=== PATIENT | female | born 1995 ===

== ENCOUNTER 2017-06-25 18:48 | Inpatient (IN) | payer BC, OTHER ==
[~2017-06-25] VITALS: Ht 157.5 cm; Wt 59.0 kg
[2017-06-25] MEDS ORDERED: ACETAMINOPHEN 325 MG TABLET PO PRN (20:30)
[2017-06-25] MEDS ORDERED: CLONIDINE HCL 0.1 MG TABLET PO PRN (20:30)
[2017-06-25] MEDS ORDERED: ONDANSETRON ODT 4 MG TAB.RAPDIS SL PRN (20:30)
[2017-06-25] MEDS ORDERED: MAG HYDROX/AL HYDROX/SIMETH 30 ML LIQUID UDC PO PRN (20:30)
[2017-06-25] MEDS ORDERED: MIRALAX 17 GM POWD.PACK PO PRN (20:30)
[2017-06-25] MEDS ORDERED: LORAZEPAM 2 MG/1 ML VIAL IM PRN (20:30)
[2017-06-25] MEDS ORDERED: ONDANSETRON 4 MG/2 ML VIAL IM PRN (20:30)
[2017-06-25] MEDS ORDERED: MAGNESIUM HYDROXIDE 30 ML LIQUID UDC PO PRN (20:30)
[2017-06-25] MEDS ORDERED: LOPERAMIDE HCL 2 MG CAPSULE PO PRN ×2 (20:30)
[2017-06-25] MEDS ORDERED: DICYCLOMINE HCL 20 MG TABLET PO PRN (20:30)
[2017-06-25] MEDS ORDERED: DIAZEPAM 5 MG TABLET PO PRN (20:30)
[2017-06-25] MEDS ORDERED: DIAZEPAM 10 MG TABLET PO PRN ×2 (20:30)
[2017-06-25 21:00] VITALS: BP 108/82
[2017-06-25] MEDS: GABAPENTIN 300 MG CAPSULE PO SCH (21:00)
--- NOTE | 2017-06-25 21:05 | NUR ---
INTAKE NOTE: Patient's first assessment done in intake office. Patient is a 21 year old female. Patient reports NKA. Patient denies History of Seizures. Patient is alert and oriented x4. VS: T: 97.6, BP: 108/82, HR 96, RR 18, RA O2SAT: 96%. Pain: "0/10". Patient noted disheveled, unkempt, uncombed. Patient appears sad, worry with poor eye contact. Patient noted high intoxicated. Patient reported usin."Xanax PO 15-20 mg every day during last three weeks. Last used on 06/25/2017 at 1735". 2."Whiskey PO 240 ml very day during last three weeks. Last used on 06/25/2017 at 1735". 3."Methamphetamine 1-2 grams via IV every day during last three weeks. Last used on 06/25/2017 at 1500". 4."Methylenedioxymethamphetamine (MDMA)PO every day during last three weeks. Patient does not remember dosage. "Last used on 06/25/2017 at 1500". 5."Nitrous oxide inhalation every day during last three weeks. Patient does not remember dosage. "Last used on 06/25/2017 at 1500". Explained rules and regulations of the unit. Will further assess patient on the unit.
--- NOTE | 2017-06-25 21:10 | NUR ---
ADMISSION NOTE: Patient is a 21 year old female admitted to [facility] on 06/25/2017 at 2110 for Benzodiazepine/Xanax, ETOH/ Whiskey , Methamphetamine, MDMA, and Nitrous oxide withdrawal. Patient is ambulatory with unsteady gate. She is intoxicated. No S/S withdrawal at this time. Height: 62 inches; 130 lb by standing scale VS: T: 97.6, BP: 108/82, HR 96, RR 18, RA O2SAT: 96%. Pain: "0/10". Patient noted disheveled, unkempt, uncombed. Patient appears sad, worry with poor eye contact. Patient is alert and oriented x4. Patient reports NKA, is on Regular Diet, Full Code, is on Fall and Seizures Precautions. Patient denies history of withdrawal-induced seizures. Past Medical History: Anxiety, Depression. Patient reports: "I don't have Primary Care Physician". Patient unable provided UDS test at this time. Blood Labs drawn. Respirations even and unlabored. Lung Sounds are clear throughout. Patient denies SOB, cough, and chest pain. Bowel sounds active in all four quadrants. Skin is warm and dry to touch. Patient has dry scabs on lips and chin. Patient has BUE and BLE track brantley from substance using. Patient has old scar on left check, and scar on left upper back from "naproxen implant placed four months ago". Patient denies SI/HI. Substance Use History: 1."Xanax PO 15-20 mg every day during last three weeks. Last used on 06/25/2017 at 1735". 2."Whiskey PO 240 ml very day during last three weeks. Last used on 06/25/2017 at 1735". 3."Methamphetamine 1-2 grams via IV every day during last three weeks. Last used on 06/25/2017 at 1500". 4." MDMA PO every day during last three weeks. Patient does not remember dosage. "Last used on 06/25/2017 at 1500". 5."Nitrous oxide inhalation every day during last three weeks. Patient does not remember dosage. "Last used on 06/25/2017 at 1500". 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 I am coming for detox Tx today because I don't want to live like this anymore". Patient would like to continue to residential treatment after detox, and is interested in getting involved in a 12 step program that can sustain her. Patient reports smoking history: "20 cigarettes or 1 pack every day since 2010". Education for smoking cessation provided. Patient did not brought her home medications. Doctor Marcus Naidu MD assessed patient. Orders placed. Educated patient about plan of care including detox, group activities therapy, individual therapy, and discharge planning. Encouraged patient to verbalize feelings. All needs met. Call light within reach. Bed locked and in lowest position. Padded side rails up x2. Will continue to monitor closely. Addendum: 06/26/17 at 0305 by TEODORO LEWIS RN Correction: Patient brought medications upon admission. Medications reconciled.
[2017-06-25 21:28] LABS: BASOPHILS # (AUTO) 0.1 K/uL (0.0-8.0); BASOPHILS % (AUTO) 0.6 % (0.0-2.0); EOSINOPHILS # (AUTO) 0.1 K/uL (0.0-0.7); EOSINOPHILS % (AUTO) 1.1 % (0.0-7.0); HEMATOCRIT 43.5 % (31.2-41.9); HEMOGLOBIN 15.1 g/dL (10.9-14.3); LYMPHOCYTES # (AUTO) 3.5 K/uL (20.0-40.0); LYMPHOCYTES % (AUTO) 33.8 % (20.5-51.5); MEAN CORPUSCULAR HEMOGLOBIN 31.1 uug (24.7-32.8); MEAN CORPUSCULAR HGB CONC 35 g/dL (32.3-35.6); MEAN CORPUSCULAR VOLUME 89.7 fL (75.5-95.3); MONOCYTES # (AUTO) 1.1 K/uL (2.0-10.0); MONOCYTES % (AUTO) 11.2 % (0.0-11.0); NEUTROPHILS # (AUTO) 5.5 K/uL (1.8-8.9); NEUTROPHILS % (AUTO) 53.3 % (38.5-71.5); PLATELET COUNT (AUTO) 292 K/uL (179-408); RED BLOOD CELL COUNT(AUTO) 4.85 MIL/uL (3.63-4.92); WHITE BLOOD COUNT (AUTO) 10.3 K/uL (3.8-11.8)
[2017-06-25 21:41] LABS: ETHANOL < 3 MG/DL (0-0)
[2017-06-25 21:47] LABS: ALANINE AMINOTRANSFERASE 26 U/L (14-59); ALKALINE PHOSPHATASE 61 U/L (50-136); ASPARTATE AMINOTRANSFERASE 19 U/L (15-37); BILIRUBIN,TOTAL 0.6 mg/dL (0.2-1.0); CARBON DIOXIDE 31 mmol/L (21-32); CHLORIDE 100 mmol/L (98-107); CREATININE 0.9 mg/dL (0.6-1.3); GLUCOSE 94 mg/dL (74-106); MAGNESIUM 1.9 mg/dL (1.8-2.4); POTASSIUM 3.7 mmol/L (3.5-5.1); TOTAL PROTEIN, SERUM 8.5 g/dL (6.4-8.2); UREA NITROGEN, BLOOD 15 mg/dL (7-18)
[2017-06-25 21:51] LABS: THYROID STIMULATING HORMONE 1.302 mIU/mL (0.358-3.740)
[2017-06-25] MEDS ORDERED: DIAZEPAM 10 MG TABLET PO ONE (22:00)
[2017-06-26] VITALS: BP 99/71
--- NOTE | 2017-06-26 | NUR ---
CIWA DEFERRED CIWA deferred @0000 due to patient sleeping; to be assessed and scored while patient is awake. Patient's respirations are even and unlabored. RR:17. Safe and calm environment with minimized noises was provided. Safety measures on place. Call light within reach, bed locked in lowest position, padded rails up bilaterally. Will continue to monitor closely.
[2017-06-26] MEDS ORDERED: HYDR-3972 PO (02:49)
[2017-06-26] MEDS ORDERED: NAPR500T6 PO (02:49)
[2017-06-26] MEDS ORDERED: CLIN300C11 PO (02:49)
[2017-06-26 04:00] VITALS: BP 109/72
--- NOTE | 2017-06-26 04:00 | NUR ---
CIWA DEFERRED CIWA deferred @0400 due to patient sleeping; to be assessed and scored while patient is awake. Patient's respirations are even and unlabored. RR:17. Safe and calm environment with minimized noises was provided. Safety measures on place. Call light within reach, bed locked in lowest position, padded rails up bilaterally. Will continue to monitor closely.
--- NOTE | 2017-06-26 07:08 | NUR ---
END OF SHIFT NOTE: Patient is a 21 year old female admitted to [facility] on 06/25/2017 at 2110 for Benzodiazepine/Xanax, ETOH/ Whiskey , Methamphetamine, MDMA, and Nitrous oxide withdrawal. 5 day Phenobarbital and PRN Valium ordered. Patient unable provided UDS test at this time. No S/S withdrawal at this time. Patient is alert and oriented x4. Patient is ambulatory with unsteady gate, and high level of intoxication. Patient appears anxious, fearful, sad, worry, with flat affect, and poor eye contact. Encouraged expresses his feeling. Speech is slurred. She is noted disheveled, unkempt, and uncombed. The patient reports NKA, is on Regular Diet, Full Code, is on Fall and Seizures Precautions. Patient denies history of withdrawal-induced seizures. Past Medical History: Anxiety, Depression. VSWNL. Skin is warm and dry to touch: Dry scabs on lips and chin, track brantley on BUE and BLE from substance using noted. Patient has old scar on left check, and scar on left upper back from "naproxen implant placed four months ago". No medications administrated during my shift. Encouraged to increase oral fluids intake as tolerated. Encouraged to attend groups activities. Patient slept 8 hours. Calm and safety environment with minimized noises was provided. All needs met. Safety measures in place: Call light within reach, bed locked in lowest position, padded bed rails up x2. Endorsed to day shift nurse.
--- NOTE | 2017-06-26 07:30 | NUR ---
START OF SHIFT Pt 21 y/o female admitted for benzo, etoh, methamphetamine withdrawal. Pt received in room on bed with eyes closed resting, but easily arousable to name. Pt alert and oriented to name, place, and time. Perrla. Skin warm and moist to touch. Bilateral hand tremors noted. Pt anxious and restless this morning. Respirations even and unlabored. Pt appears disheveled with hair uncombed. Encouraged to maintain hygiene. It was reported that pt slept for 8 hours last night. Pt is on 5 day phenobarbital taper and is on day1. Bed on lowest position with side rails x 2up for safety. Call light within reach.
[2017-06-26 08:00] VITALS: BP 100/68
[2017-06-26 08:42] LABS: *URINE HCG, QUAL NEGATIVE (NEGATIVE)
[2017-06-26] MEDS: GABAPENTIN 300 MG CAPSULE PO SCH ×2 (08:58→20:50)
[2017-06-26] MEDS: PHENOBARBITAL 60 MG TABLET PO SCH ×4 (08:59→20:50)
[2017-06-26] MEDS ORDERED: TUBERCULIN,PURIF.PROT.DERIV. 5 TU/0.1 ML TEST ID ONE (09:00)
[2017-06-26 12:00] VITALS: BP 126/84
[2017-06-26] MEDS ORDERED: OLANZAPINE ZYDIS 5 MG TAB.RAPDIS PO PRN (14:00)
[2017-06-26 15:00] LABS: *AMPHETAMINE, URINE POSITIVE (NEGATIVE); *BARBITURATE, URINE POSITIVE (NEGATIVE); *CANNABINOID, URINE POSITIVE (NEGATIVE); *COCCAINE, URINE NEGATIVE (NEGATIVE); *OPIATE, URINE NEGATIVE (NEGATIVE); *PHENCYCLIDINE SCREEN,URINE NEGATIVE (NEGATIVE)
[2017-06-26 16:00] VITALS: BP 109/68
[2017-06-26] MEDS: METHOCARBAMOL 500 MG TABLET PO PRN (16:44)
--- NOTE | 2017-06-26 16:47 | NUR ---
PRN Pt states has body aches 6/10. Robaxin po prn per MD order given and tolerated well.
--- NOTE | 2017-06-26 18:47 | NUR ---
PRN EVAL Pt states body aches 05/03.
--- NOTE | 2017-06-26 18:50 | NUR ---
START OF SHIFT NOTE: Patient is a 21 year old female presented for safety withdrawal from Benzodiazepines/Xanax, ETOH/"Whiskey", Methamphetamine and MDMA. Patient continues ordered 5 day Phenobarbital Taper. Withdrawal symptoms being closely monitored. She is on Full Code, Regular Diet, Fall and Seizures precautions. Patient denies history of withdrawal induced seizures. Patient is alert and oriented x4. The most recent CIWA=10 at 1600 per outgoing day shift nurse report: Patient presented with moderate withdrawal symptoms of anxiety, agitation, nervousness, headache, nasal congestion, tremors, abdominal cramps, generalized body aches, restlessness, and fatigue. She is appears anxious, agitated, worry, sad with poor eye contact, and with flat affect. Encouraged to express her feeling, and reassuring provided. The patient noted disheveled, unkempt, and uncombed. Education for hygiene and safety provided. Patient verbalized understanding. VSWNL. Respirations are even and unlabored. Patient denies chest pain and cough. Skin is warm and dry to touch. Patient ''s healed dry scabs on lips and chin, old scar - on left check, old scar - on left upper back, and multiple track brantley - on BUE and BLE. PRN Robaxin 500 mg PO administrated for myalgia at 1644 was effective per day shift nurse report. Encouraged to intake fluids as tolerated. Encouraged to attend group activities. Safety and calm environment provided. All needs met. Safety measures in place: Call light within reach, bed locked in lowest position, padded bed rails up bilaterally. Patient endorsed by outgoing day shift nurse. Will continue to monitor closely.
--- NOTE | 2017-06-26 18:50 | NUR ---
END OF SHIFT Pt 21 y/o male admitted for benzo, etoh, and methamphetamine withdrawal. Pt alert and oriented to name, place, and time. Perrla. Skin warm and moist to touch. Respirations even and unlabored. Bilateral hand tremors noted. Pt appears disheveled with hair uncombed. Empty bottles of water scattered throughout the room. Encouraged to maintain hygiene. Pt isolative to room throughout the day. Pt did not attend group activity. Pt was seen by MD today. Pt medication compliant and tolerated well. No ASE noted. ciwa=15@0800,10@1200, and 10@1800. Pt is on a 5 day phenobarbital taper and is on day 1. Bed on lowest position with side rails x2 up for safety. Call light within reach.
[2017-06-26 20:00] VITALS: BP 118/85
[2017-06-26] MEDS: diphenhydrAMINE 50 MG CAPSULE PO PRN (20:49)
--- NOTE | 2017-06-26 20:49 | NUR ---
PRN BENADRYL 50 MG 1 CAP PO ADMINISTRATION Patient c/o insomnia and asked aid. Benadryl 50 mg PO administrated PRN with full glass of water as ordered. Patient tolerated well. All needs met. Safe and calm environment with minimized noises was provided. Safety measures on place. Call light within reach, bed in lowest position locked, padded rails up bilaterally. Will continue to monitor closely.
--- NOTE | 2017-06-26 21:49 | NUR ---
RE-ASSESSMENT Patient is sleeping. RR 17. Respirations even and unlabored. Benadryl 50 mg PO administrated PRN for insomnia at 2037 was effective. Safe and calm environment with minimized noises was provided. All needs met. Safety measures on place. Call light within reach, bed in lowest position locked, padded rails up bilaterally. Will continue to monitor closely.
[2017-06-27] VITALS: BP_SYST 111; BP_SYST 94; BP_DIAS 64; BP_DIAS 70
[2017-06-27 04:00] VITALS: BP 96/56
--- NOTE | 2017-06-27 06:57 | NUR ---
END OF SHIFT NOTE: Patient is a 21 year old female admitted for Benzodiazepines/Xanax, ETOH/Whiskey, and Methamphetamine withdrawal . Patient appears anxious, agitated, worry, sad with poor eye contact. Mood and energy levels fluctuated over time - patient presented with low mood, flat affect and being quiet restless and agitated later during power and recovery shift engineer. At beginning of the shift CIWA 11 at 2000, CIWA=10 at 0000. The most recent CIWA=9 at 0400. During my shift patient presented with anxiety,agitation, depression, nervousness, tremors, sweating, restlessness, body aches, irritability, and fatigue. PRN Benadryl 50 mg PO administrated PRN for insomnia at 2048 was effective. Skin is warm and dry to touch. Patient has multiple scattered track brantley r/t to substance use. Encouraged to increase oral fluids intake as tolerated. Encouraged to attend groups activities. Calm and safety environment with minimized noises was provided. Patient slept 5 hours, intake 855 ml, voided x3. Encouraged to fluid intake as tolerated. All needs met. Safety measures in the place: Call light within reach, bed in the lowest position and locked, padded rails up x2. Patient endorsed to day shift nurse.
--- NOTE | 2017-06-27 07:30 | NUR ---
START OF SHIFT Pt 21 y/o female admitted for benzo, etoh, methamphetamine withdrawal. Pt received in room on bed awake with television on. Pt alert and oriented to name, place, and time. Perrla. Skin warm and moist to touch. Bilateral hand tremors noted. Pt anxious and this morning. Respirations even and unlabored. Pt appears disheveled. Empty water bottles and clothes scattered throughout the room. Encouraged to maintain hygiene. It was reported that pt slept for 5 hours last night. Pt is on 5 day phenobarbital taper and is on day 2. Bed on lowest position with side rails x 2 up for safety. Call light within reach.
[2017-06-27 08:00] VITALS: BP 104/67
[2017-06-27 08:09] LABS: HEPATITIS B SURFACE AG Negative (Negative)
[2017-06-27] MEDS: METHOCARBAMOL 500 MG TABLET PO PRN (08:20)
[2017-06-27] MEDS: IBUPROFEN 400 MG TABLET PO PRN (08:20)
[2017-06-27] MEDS: PHENOBARBITAL 60 MG TABLET PO SCH ×3 (08:20→20:13)
[2017-06-27] MEDS: GABAPENTIN 300 MG CAPSULE PO SCH ×2 (08:20→14:02)
--- NOTE | 2017-06-27 08:24 | NUR ---
PRN Pt states has body pain 6/10. Motrin po prn per MD order given and tolerated well.
--- NOTE | 2017-06-27 08:24 | NUR ---
PRN Pt states has body aches 8/10. Robaxin po prn per MD order given and tolerated well.
--- NOTE | 2017-06-27 09:24 | NUR ---
PRN EVAL Pt observed on bed with eyes closed resting, but easily arousable to name.
[2017-06-27 12:00] VITALS: BP 119/80
[2017-06-27] MEDS ORDERED: HYDROXYZINE PAMOATE 25 MG CAPSULE PO PRN (13:45)
[2017-06-27 16:30] VITALS: BP 121/84
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
--- NOTE | 2017-06-27 19:06 | NUR ---
START OF SHIFT NOTE: Presented patent continues 5 day Phenobarbital taper ordered for Benzodiazepines/Xanax, ETOH/"Whiskey", Methamphetamine, and MDMA withdrawal. Withdrawal symptoms being closely monitored. Patient remains compliant with treatment, medications, and diet regime. Patient is alert and oriented x4. Patient appears with anxious mood, c/o easily overwhelmed, and expresses feelings of worthlessness. Patient denied SI/HI. Emotional support provided. Education provided to use of Relaxation Techniques: deep breathing exercises, guided imagery, and visualization. Patient noted unkempt with uncombed hair. Education in safety and hygiene care provided. Encouraged to independently perform hygiene care. CIWA=13 at 1600. Patient presented with anxiety, agitation, nervousness, tremors, irritability, general body aches, sweating, restlessness, and fatigue. PRN Robaxin 500 mg PO administrated for myalgia at 0820, and PRN Motrin 400 mg PO administrated for generalized body aches at 0820 were effective. Patient encouraged to increase oral fluid intake as tolerated. Safe and calm environment with minimized noises was provided. All needs met. Safety measures in the place: Call light within reach, bed in the lowest position locked, padded rails up x2. Patient endorsed by day shift nurse.
--- NOTE | 2017-06-27 19:06 | NUR ---
END OF SHIFT Pt 21 y/o male admitted for benzo, etoh, and methamphetamine withdrawal. Pt alert and oriented to name, place, and time. Perrla. Skin warm and moist to touch. Respirations even and unlabored. Bilateral hand tremors noted. Pt with agitated episode this afternoon. Pt appears disheveled. Clothes and empty bottles of water scattered throughout the room. Pt with low motivation for self care. Encouraged to maintain hygiene. Pt mostly isolative to room throughout the day. Pt attended group activity. Pt was seen by MD today. Pt medication compliant and tolerated well. No ASE noted. ciwa=10@0800, 9@1200, and 9@1800. Pt is on a 5 day Phenobarbital taper and is on day 2. Bed on lowest position with side rails x2 up for safety. Call light within reach.
[2017-06-27 20:00] VITALS: BP 122/79
[2017-06-27] MEDS: diphenhydrAMINE 50 MG CAPSULE PO PRN (20:12)
[2017-06-27] MEDS ORDERED: GABAPENTIN 300 MG CAPSULE PO SCH (21:00)
--- NOTE | 2017-06-27 21:12 | NUR ---
RE-ASSESSMENT Benadryl 50 mg PO administrated PRN for insomnia at 2012 was non-effective. Patient states that " I can't sleep". Safe and calm environment with minimized noises was provided. All needs met. Safety measures on place. Call light within reach, bed in lowest position locked, padded rails up bilaterally. Will continue to monitor closely.
--- NOTE | 2017-06-27 21:19 | NUR ---
PRN CATAPRES (CLONIDINE HCL 0.1 MG TABLET) 0.1 MG 1 TAB PO ADMINISTRATION PRN Catapres (Clonidine HCL 0.1 mg tablet) 0.1 mg 1 tab PO administrated for anxiety and agitation as ordered. Patient tolerated well. Safe and calm environment with minimized noises was provided. All needs met. Safety measures in the place: Call light within reach, bed in the lowest position locked, padded rails up x2. Will continue to monitor closely.
--- NOTE | 2017-06-27 22:19 | NUR ---
RE-ASSESSMENT PRN Clonidine 0.1 mg PO administrated for anxiety and agitation as ordered was effective. Patient is sleeping. Respirations even and unlabored. RR 16. Safe and calm environment with minimized noises was provided. All needs met. Safety measures on place. Call light within reach, bed in lowest position locked, padded rails up bilaterally. Will continue to monitor closely.
--- NOTE | 2017-06-28 | NUR ---
VS REFUSED, CIWA DEFERRED VS refused, CIWA deferred @0000 due to patient sleeping; to be assessed and scored while patient is awake. RR:15. Patient's respirations are even and unlabored. Safe and calm environment with minimized noises was provided. Safety measures on place. Call light within reach, bed locked in lowest position, padded rails up bilaterally. Will continue to monitor closely.
--- NOTE | 2017-06-28 04:00 | NUR ---
VS REFUSED, CIWA DEFERRED VS refused, CIWA deferred @0400 due to patient sleeping; to be assessed and scored while patient is awake. Patient's respirations are even and unlabored. RR:16. Safe and calm environment with minimized noises was provided. Safety measures on place. Call light within reach, bed locked in lowest position, padded rails up bilaterally. Will continue to monitor closely.
--- NOTE | 2017-06-28 07:12 | NUR ---
END OF SHIFT NOTE: Presented patient is a 21 year old female continues 5 day Phenobarbital Taper for Benzodiazepines/Xanax, ETOH/Whiskey, and Methamphetamine withdrawal. Withdrawal symptoms being closely monitored. Patient is alert and oriented x4. Patient appears sad, worry, with liable affect, and expresses feelings of nervousness and irritability. Encouraged verbalization of feelings, fears, and anxiety. Emotional support and reassuring provided. Encouraged to use of relaxation skills, guided imagery, visualizations. Last CIWA= 10 @0000. Patient presented with moderate withdrawal symptoms of anxiety, agitation, depression, nervousness, restlessness, irritability, sweating, tremors, generalized body aches, and fatigue. PRN Benadryl 50 mg 1 cap PO administrated for insomnia at 2011, and PRN Clonidine 0.1 mg PO administrated for increased anxiety and agitation as ordered at 2118 were effective. Calm and safety environment with minimized noises was provided. Patient slept 8 hours, intake 1,096 ml, voided x1. Encouraged to fluid intake as tolerated. Encourage to attended groups activities. All needs met. Safety measures in the place by hospital policy: Call light within reach, bed in the lowest position locked, padded rails up x2. Patient endorsed to day shift nurse.
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
[2017-06-28 08:00] VITALS: BP 101/61
[2017-06-28] MEDS ORDERED: PHENOBARBITAL 60 MG TABLET PO SCH ×3 (09:00→21:00)
[2017-06-28] MEDS: GABAPENTIN 300 MG CAPSULE PO SCH (09:18)
[2017-06-28] MEDS: IBUPROFEN 400 MG TABLET PO PRN (09:18)
--- NOTE | 2017-06-28 09:18 | NUR ---
PRN IBUPROFEN 400 MG PO PRN GIVEN FOR JAW PAIN 10/03. WILL MONITOR AND REASSESS.
--- NOTE | 2017-06-28 10:18 | NUR ---
REASSESSMENT PT REPORTS PAIN HAS CEASED AND NOW MORE TOLERABLE. SAFETY MEASURES IN PLACE. WILL CONTINUE TO MONITOR.
[2017-06-28] MEDS ORDERED: METHOCARBAMOL 750 MG TABLET PO PRN (11:00)
[2017-06-28] MEDS ORDERED: BENZOCAINE ORAL CARE 12 ML BOTTLE MM PRN (11:00)
[2017-06-28] MEDS ORDERED: IBUPROFEN 600 MG TABLET PO PRN (11:00)
[2017-06-28 12:00] VITALS: BP 103/59
--- NOTE | 2017-06-28 13:05 | NUR ---
BEHAVIORAL NOTE PT WAS NON-COMPLIANT WITH RULES, HIGHLY AGITATED, ANGRY AND YELLING AT STAFF IN THE HALLWAY USING VERBALLY ABUSIVE LANGUAGE. MULTIPLE STAFF TRIED TO REDIRECT PT HOWEVER PT INCREASED IN VERBAL TONE AND LOUDNESS. PT VERBALIZED SHE IS LEAVING AMA, AND IS HER FINAL DECISION. PT STATED, "I SHOULD HAVE LEFT YESTERDAY. I'M NOT READY FOR THIS. I DON'T KNOW WHY THIS IS THE ONLY [facility] THAT IS SO STRICT WITH THEIR RULES. I DON'T SEE ANYTHING WRONG WHAT I DID."
--- NOTE | 2017-06-28 13:55 | NUR ---
AMA NOTE PT LEFT AMA, REFUSED TO COMPLY WITH RULES AND TREATMENT. PT HAS BEEN EDUCATED ABOUT RISKS, BENEFITS AND CONSEQUENCES OF LEAVING AMA. PT VERBALIZED UNDERSTANDING HOWEVER STILL ADAMANT AND DETERMINED TO LEAVE DETOX. MULTIPLE STAFF MEMBERS INCLUDING MD, NURSES AND ADMINISTRATION ATTEMPTED TO REASON WITH PT WITHOUT SUCCESS. VS WNL, PT DENIED SI/HI. MDS WERE NOTIFIED AND AWARE. PT HAS BEEN GIVEN A COPY OF COMMUNITY RESOURCES AND AMA PAPERWORK WAS SIGNED. PT LEFT THE BUILDING AT 1355 ON 06/28/17 WITH ALL BELONGINGS, PRESCRIPTIONS THAT WERE RETURNED TO PT.
[2017-06-28] MEDS ORDERED: GABAPENTIN 300 MG CAPSULE PO SCH (15:00)
[2017-06-29] MEDS ORDERED: PHENOBARBITAL 60 MG TABLET PO SCH (09:00)
[2017-06-30] MEDS ORDERED: PHENOBARBITAL 60 MG TABLET PO SCH (09:00)
[2017-07-01] MEDS ORDERED: PHENOBARBITAL 60 MG TABLET PO SCH (09:00)
== END 2017-06-28 13:55 | disposition left against medical advice (07) | DRG 894 ==
LOC: SRC 20:06
PROVIDERS: ADMIT Internal Medicine; ATTEND Internal Medicine
PROC: HZ2ZZZZ Detoxification Services for Substance Abuse Treatment (ICD-10-PCS; principal; 2017-06-25)
PROC: HZ31ZZZ Individual Counseling for Substance Abuse Treatment, Behavioral (ICD-10-PCS; 2017-06-28)
DX: F13.232 Sedative, hypnotic or anxiolytic dependence with withdrawal with perceptual disturbance (principal); F15.221 Other stimulant dependence with intoxication delirium; Z59.0 Homelessness; Z59.1 Inadequate housing; Z91.89 Other specified personal risk factors, not elsewhere classified; F41.9 Anxiety disorder, unspecified; F16.10 Hallucinogen abuse, uncomplicated; F17.210 Nicotine dependence, cigarettes, uncomplicated; G47.00 Insomnia, unspecified; F32.9 Major depressive disorder, single episode, unspecified; R26.81 Unsteadiness on feet
CPT/HCPCS: 36415; 80307; 80324; 80345; 80346; 80349; 83735; 84443; 84703; 85025; 86580; 86592; 86705; 86803; 87340; 87806; A4663; A9150; G0480; J8499; Q0163